=== PATIENT | female | born 1990 | race Caucasian/White ===

== ENCOUNTER 2017-07-31 11:55 | Emergency (ER) | payer BC ==
[2017-07-31 12:01] VITALS: TEMP 98.6
--- NOTE | 2017-07-31 13:27 | EDPHY ---
H & P Time Seen by Provider: 07/31/17 12:07 HPI/ROS: Chief complaint. Finger laceration HPI. 26-year-old female was at work cutting a bagel today when the vagal slipped and she cut her left index finger. Patient is right handed. Slight numbness to the tip of her left index finger distal to the cut. No concern about foreign body. No weakness. No other injuries. ROS Constitutional. no fever/chills, no weakness Eyes. no problems with vision ENT. no sore throat, no nasal drainage Cardiovascular. no chest pain Respiratory. no shortness of breath, no cough Abdominal. no abdominal pain, no nausea/vomiting, no diarrhea . no problems urinating MS. no calf pain/swelling, no neck/back pain, no joint pain Skin. Laceration left index finger Lymph. no swollen glands Neuro. no headache, no dizziness, no difficulty walking or with speech Past Medical/Surgical History: Healthy Social History: Single, nonsmoker, no alcohol Smoking Status: Never smoked Physical Exam: General Appearance: Alert well-developed female mild distress vital signs stable Eyes:[ Pupils equal and round no pallor or injection]. ENT,[ Mouth: Mucous membranes are moist.] Respiratory: [There are no retractions, lungs are clear to auscultation.] Cardiovascular:[ Regular rate and rhythm.] Gastrointestinal: [ Abdomen is soft and nontender, no masses, bowel sounds normal.] Neurological: [Awake and alert, sensory and motor exams grossly normal.] Skin: 1.5 cm laceration left index finger just distal to the D IP joint. Some decreased sensation on that side of the index finger distal to the laceration Musculoskeletal: [Neck is supple nontender.] Extremities [ symmetrical, full range of motion.] Psychiatric:[ Patient is oriented X 3, there is no agitation.] Constitutional: Initial Vital Signs Temperature (C) 37.0 C 07/31/17 11:59 Heart Rate 89 07/31/17 11:59 Respiratory Rate 20 07/31/17 11:59 Blood Pressure 118/66 07/31/17 11:59 O2 Sat (%) 98 07/31/17 11:59 O2 Delivery Mode Room Air Allergies/Adverse Reactions: No Known Allergies Allergy (Unverified 07/31/17 11:58) Home Medications: Medication Instructions Recorded NK [No Known Home Meds] 07/31/17 Medical Decision Making Procedures: Procedure: Laceration repair. Verbal consent was obtained from the patient. The 1.5 cm laceration on the left index finger was anesthetized in the usual fashion. The wound was irrigated, draped and explored to its base with a gloved finger. There were no deep structures involved. No tendon injury was identified. The wound was repaired with 5 5-0 Prolene sutures. . The wound repair was simple. The procedure was performed by myself. ED Course/Re-evaluation: Patient remained stable. She and I discussed treatment plan including criteria for return importance of follow-up further evaluation. She expresses understanding and agreement Differential Diagnosis: I considered tendon laceration, nerve laceration, retained foreign body, infection potential of wound Departure - Departure Disposition: Home, Routine, Self-Care Clinical Impression: Laceration of left index finger Qualifiers: Encounter type: initial encounter Damage to nail status: with damage Foreign body presence: without foreign body Qualified Code(s): S61.311A - Laceration without foreign body of left index finger with damage to nail, initial encounter Condition: Good Instructions: Care For Your Stitches (ED) Additional Instructions: Keep cut clean and dry. You may shower and wash your hands with stitches in. Avoid immersion. Return for signs of infection. Stitches out 10 days
[2017-07-31 13:51] VITALS: BP 112/64; PULSE 71; RESP 16; O2SAT 99
== END 2017-07-31 13:51 | disposition home or self-care (01) ==
PROC: 0HQGXZZ Repair Left Hand Skin, External Approach (ICD-10-PCS; principal; 2017-07-31)
DX: S61.211A Laceration without foreign body of left index finger without damage to nail, initial encounter (principal); W45.8XXA Other foreign body or object entering through skin, initial encounter